=== PATIENT | female | born 1980 | race Two or more races ===

== ENCOUNTER 2017-06-11 12:49 | Inpatient (IN) | payer OTHER ==
[~2017-06-11] VITALS: Ht 162.6 cm; Wt 81.6 kg
[2017-06-11] MEDS ORDERED: PRENATAL TABLE1 EAC2 PO (13:33)
== END 2017-06-13 18:46 | DRG 775 ==
LOC: LDR 12:49 → OB/GYN 20:19
PROC: 10E0XZZ Delivery of Products of Conception, External Approach (ICD-10-PCS; principal; 2017-06-11)
PROC: 0DQR0ZZ Repair Anal Sphincter, Open Approach (ICD-10-PCS; 2017-06-11)
PROC: 0W8NXZZ Division of Female Perineum, External Approach (ICD-10-PCS; 2017-06-11)
PROC: 4A1HXCZ Monitoring of Products of Conception, Cardiac Rate, External Approach (ICD-10-PCS; 2017-06-11)
DX: O70.21 Third degree perineal laceration during delivery, IIIa (principal); Z3A.39 39 weeks gestation of pregnancy; Z37.0 Single live birth